=== PATIENT | male | born 1940 | race Hispanic/Latino ===

== ENCOUNTER 2017-09-09 16:03 | Observation (INO) | payer MEDICARE ==
[2017-09-09 16:53] LABS: #Eosinphils 0.1 thou/uL (0.0-0.7); #Lymphocytes 0.6 thou/uL (1.20-3.40); #Monocytes 0.7 thou/uL (0.11-0.59); #Neutrophils 10.8 thou/uL (1.40-6.50); %Basophils 0.1 % (0.0-1.0); %Eosinophils 0.7 % (0.0-10.0); %Lymphocytes 4.9 % (21.0-51.0); %Monocytes 5.4 % (0.0-10.0); Hemoglobin 14.6 g/dL (14.0-18.0); Mean Corpuscular HGB CONC 34.7 g/dL (32.0-36.0); Mean Corpuscular Hemoglobin 29.3 pg (27.0-31.0); Mean Corpuscular Volume 84.4 fL (78.0-98.0); Mean Platelet Volume 8.7 fL (7.4-10.4); Platelet Count 184 thou/uL (130-400); RBC Distribution Width 12.3 % (11.5-14.5); Red Blood Cell (RBC) Count 4.99 mill/uL (4.70-6.10); White Blood Cell (WBC) Count 12.1 thou/uL (4.8-10.8)
[2017-09-09 17:04] LABS: Bilirubin Negative (Negative); Blood, Urine Negative (Negative); Clarity CLEAR (Clear); Glucose, Urine (Dipstick) Negative (Negative); Leukocyte Negative (Negative); Nitrite Negative (Negative); Protein, Urine (Dipstick) 30 mg/dL (Neg-Trace); Specific Gravity, Urine 1.023 (1.002-1.036); Urobilinogen 0.2 mg/dL (0.2-1.0); pH, Urine 5.5 (5.0-9.0)
[2017-09-09 17:11] LABS: Bacteria/HPF None Seen HPF (None Seen); Pathc Cast-AUWi Flag 1.01 (0-2.49); Squamous Epithelial 0-3 HPF (0-3); WBC/HPF 0-3 HPF (0-3)
[2017-09-09 17:16] LABS: Hyaline Casts/LPF 0-3 HYALINE CAST LPF (0-3 Hyaline)
[2017-09-09 17:18] LABS: CKMB 1.2 ng/mL (0-6.6); Troponin I Less than 0.010 ng/mL (< 0.028)
--- NOTE | 2017-09-09 17:39 | RAD ---
PORTABLE CHEST ONE VIEW: 09/09/17 at 4:09 p.m. HISTORY: Weakness. FINDINGS: Comparison is made with exam of 07/24/15. There are changes of median sternotomy. There has been interval placement of a left sided AICD. The h eart size is normal. The lungs are expanded without focal areas of consolidation, pneumothoraces or p leural effusions. IMPRESSION: No acute process. POS: [facility]
[2017-09-09 17:57] LABS: ALT (SGPT) 15 U/L (8-55); AST (SGOT) 14 U/L (5-34); Albumin 4.6 g/dL (3.4-4.8); Alkaline Phosphatase 92 U/L (40-150); Anion Gap 16 mmol/L (10-20); BUN (Urea Nitrogen) 19 mg/dL (8.4-25.7); Bilirubin, Total 0.9 mg/dL (0.2-1.2); Calc. Creatinine Clearance 0 mL/min (70-130); Calcium 9.7 mg/dL (7.8-10.44); Carbon Dioxide 20 mmol/L (23-31); Chloride 106 mmol/L (98-107); Estimated GFR-MDRD 76; Globulin 3.4 g/dL (2.4-3.5); Glucose 160 mg/dL (83-110); Potassium 4.6 mmol/L (3.5-5.1); Sodium 137 mmol/L (136-145)
[2017-09-09] MEDS ORDERED: Ondansetron HCl/PF 4 MG/2 ML Vial ONE (18:13)
[2017-09-09] MEDS ORDERED: Ondansetron ODT 4 MG TAB ONE (18:19)
[2017-09-09] MEDS ORDERED: Acetaminophen 325 MG TAB PO PRN (20:52)
[2017-09-09] MEDS ORDERED: Ondansetron ODT 4 MG TAB SL PRN (20:52)
[2017-09-09] MEDS ORDERED: Ondansetron HCl/PF 4 MG/2 ML Vial IVP PRN (20:52)
[2017-09-09] MEDS ORDERED: Sodium Chloride 0.9% 1,000 ML IV SCH (20:52)
[2017-09-09 21:46] VITALS: BMI 25.1
[2017-09-09] MEDS ORDERED: Carvedilol 25 MG TAB PO SCH (22:00)
--- NOTE | 2017-09-10 03:21 | HP ---
CODE STATUS: FULL CODE. PRIMARY CARE PHYSICIAN: Dr. Adelso Moran. TIME OF EVALUATION: 8:00 p.m. CHIEF COMPLAINT: Generalized weakness, nausea, and vomiting. HISTORY OF PRESENT ILLNESS: A 77-year-old male patient with past medical history of hypertension, CA BG, CAD, atrial fibrillation came to the ER after having severe generalized weakness, associated with nausea. There was profuse, bilious vomiting, with no clear triggers, no alleviating factors. Patie nt reported that he also have some diarrhea today, he also reported that he has had some change in th e diet yesterday, no one else at home were sick. REVIEW OF SYSTEMS: Constitutional: No fever, no chills. Patient reported severe generalized weakne ss. Respiratory: No cough, no sputum production or shortness of breath. Cardiovascular: No chest pain, palpitations, shortness of breath. Gastrointestinal: No nausea, vomiting, diarrhea, abdominal pain. 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 Genitourinary: No burning on urinatio n. Extremities: No leg swelling. All other systems were reviewed and negative except for the findi ngs mentioned above. PAST MEDICAL HISTORY: Positive for coronary artery disease, gallstones. PAST SURGICAL HISTORY: CABG x2 vessels. PSYCHIATRIC HISTORY: No previous psychiatric history. SOCIAL HISTORY: No alcohol, no drugs. No smoking history. FAMILY HISTORY: Mother with hypertension and CVA, father with heart problems. DRUG ALLERGIES: No known drug allergies. REPORTED MEDICATIONS: Lisinopril, carvedilol, spironolactone. PHYSICAL EXAMINATION: VITAL SIGNS: On presentation blood pressure 135/67 with heart rate 79, respiratory rate was 16, temp erature 97.6, oxygen saturation 98 on room air. GENERAL APPEARANCE: The patient is alert and oriented in no acute distress. HEENT: Eye, normal conjunctivae. Dry oral mucosa. Anicteric. NECK: No JVD. RESPIRATORY: Bilateral air entry. No rales, no wheezing. Symmetric expansion. CARDIOVASCULAR: Normal rate, regular rhythm. No murmurs, no gallop. No edema. ABDOMEN: Soft, normal bowel sounds. MUSCULOSKELETAL: Baseline range of motion and strength. No tenderness. SKIN: Warm and intact. No pallor, no rash, no redness. NEUROLOGIC: Baseline sensory. No evidence of any focal weakness. Baseline speech. Cranial nerves seem to be intact. PSYCHIATRIC: Patient is in a good mood. No anxiety, oriented, optimal judgment. IMAGING: EKG was reviewed by myself. Patient has normal sinus rhythm, BBB. Chest x-ray was reviewe d. The patient had no acute cardiopulmonary process. LABORATORY DATA: Reviewed. The patient had white count 12.1, hemoglobin 14, MCV 84, platelet count 184, neutrophils 89. Chemistry: Sodium 137, potassium 4.6, chloride 106, carbon dioxide was 20, ani on gap 16, BUN 19, creatinine 0.9, GFR 76, glucose 160. LFTs were negative. Troponin was negative. UA was done and was negative. ASSESSMENT AND PLAN: The patient will be placed in the hospital with following medical problems: 1. Intractable nausea and vomiting, unclear etiology, to be secondary to food poisoning, symptoms betancur ve improved after hydration and symptomatic treatment. Most likely patient will be able to go home e luis m in the morning. 2. Leukocytosis with white count 12, no clear etiology, likely secondary to acute physical distress. We will monitor, have any evidence of infection. We will place the patient on antibiotics. 3. History of coronary artery disease, status post coronary artery bypass graft, this is chronic, se ems to be stable. Home medications will be reconciled. 4. Hyperglycemia. Blood sugar 160, no history of diabetes reported. We will monitor, no need for a ny acute intervention. Might be secondary to acute physical distress. 5. Deep venous thrombosis prophylaxis.
[2017-09-10 05:25] LABS: #Lymphocytes 0.9 thou/uL (1.20-3.40); #Monocytes 0.6 thou/uL (0.11-0.59); #Neutrophils 7.6 thou/uL (1.40-6.50); %Basophils 0.1 % (0.0-1.0); %Eosinophils 0.1 % (0.0-10.0); %Lymphocytes 9.9 % (21.0-51.0); %Monocytes 6.4 % (0.0-10.0); %Neutrophils 83.5 % (42.0-75.0); Hemoglobin 12.1 g/dL (14.0-18.0); Mean Corpuscular HGB CONC 33.6 g/dL (32.0-36.0); Mean Corpuscular Hemoglobin 28.2 pg (27.0-31.0); Mean Corpuscular Volume 83.7 fL (78.0-98.0); Mean Platelet Volume 7.8 fL (7.4-10.4); Platelet Count 187 thou/uL (130-400); RBC Distribution Width 11.9 % (11.5-14.5); Red Blood Cell (RBC) Count 4.29 mill/uL (4.70-6.10); White Blood Cell (WBC) Count 9.1 thou/uL (4.8-10.8)
[2017-09-10 05:47] LABS: Anion Gap 15 mmol/L (10-20); BUN (Urea Nitrogen) 17 mg/dL (8.4-25.7); Calc. Creatinine Clearance 73 mL/min (70-130); Calcium 8.4 mg/dL (7.8-10.44); Carbon Dioxide 19 mmol/L (23-31); Chloride 107 mmol/L (98-107); Estimated GFR-MDRD 84; Glucose 148 mg/dL (83-110); Potassium 3.8 mmol/L (3.5-5.1); Sodium 137 mmol/L (136-145)
[2017-09-10] MEDS ORDERED: Aspirin 81 mg Enteric Coated Tablet PO SCH (09:00)
[2017-09-10] MEDS ORDERED: Prevnar 13-Val Conj/PF 0.5 ML SYRINGE IM ONE (09:00)
[2017-09-10] MEDS ORDERED: Losartan 25 MG TAB PO SCH (09:00)
[2017-09-10] MEDS ORDERED: Spironolactone 25 MG TAB PO SCH (09:00)
[2017-09-10] MEDS ORDERED: Carvedilol 25 MG TAB PO SCH (09:00)
[2017-09-10] MEDS ORDERED: Enoxaparin Sodium 40 MG/0.4 ML SYRINGE SC SCH (09:00)
[2017-09-10 12:15] VITALS: TEMP 98.5
[2017-09-10 15:57] VITALS: BP 106/52
--- NOTE | 2017-09-11 01:06 | DIS ---
DATE OF ADMISSION: 09/09/2017 DATE OF DISCHARGE: 09/10/2017 DISCHARGE DIAGNOSES: 1. Acute gastroenteritis, likely viral, resolving. 2. Nausea and vomiting secondary to acute gastroenteritis, resolved. 3. Leukocytosis, resolved. 4. Dehydration secondary to acute gastroenteritis, resolved. CONSULTATIONS: None. PERTINENT LAB AND X-RAY FINDINGS: Complete metabolic profile within normal limits. Total CK 45. CB C showed a white blood cell count ranging between 9.1 to 12.1. Urinalysis positive for protein. Blo od cultures x2 from 09/09/2017 showed no growth at 24 hours. Portable chest x-ray dated 09/09/2017 s howed no acute cardiopulmonary process. HOSPITAL COURSE: The patient was observed on the telemetry unit after initially presenting with naus ea, vomiting, and diarrhea. The patient was placed on IV fluids and given general supportive measure s throughout the hospital course. The patient was also treated with antiemetics and monitored for cl inical response. The patient clinically improved in 24 hours with resolution of nausea and vomiting. Screening metabolic survey was essentially unremarkable, and blood cultures were negative x2. Like ly presentation consistent with viral gastroenteritis with recommendations for general supportive man agement. I have examined the patient at the time of discharge and discussed followup instructions. The patient verbalizes understanding and agreement, ready for discharge on 09/10/2017. DISCHARGE MEDICATIONS: 1. Enteric-coated aspirin 81 mg 1 tab p.o. daily. 2. Coreg 25 mg p.o. b.i.d. 3. Losartan 25 mg p.o. daily. 4. Spironolactone 12.5 mg p.o. daily, resume on 09/12/2017. FOLLOWUP: The patient will follow up with his primary care provider, Dr. Adelso Moran within 7 days of discharge. CONDITION ON DISCHARGE: Stable. ACTIVITY: Ad carol. DIET: Heart healthy. CODE STATUS: FULL. DISPOSITION: Home, 09/10/2017.
== END 2017-09-10 16:24 | disposition home or self-care (01) ==
LOC: ERS 16:03 → 2SW 20:48
PROVIDERS: ADMIT Family Medicine; ATTEND Family Medicine
DX: K52.89 Other specified noninfective gastroenteritis and colitis (principal); D72.829 Elevated white blood cell count, unspecified; E86.0 Dehydration; R53.1 Weakness; R73.9 Hyperglycemia, unspecified; I10 Essential (primary) hypertension; I25.10 Atherosclerotic heart disease of native coronary artery without angina pectoris; I48.91 Unspecified atrial fibrillation; Z79.899 Other long term (current) drug therapy; Z95.1 Presence of aortocoronary bypass graft
CPT/HCPCS: 71045; 80048; 80053; 82550; 82553; 83605; 84484; 85025 ×2; 87040; 93005; 96360; 96361; 96372; 99285; G0378 ×2; 36415; 81003; 81015; 90471; 90670; A4216; G0009; J1650; J2405; Q0162

== ENCOUNTER 2018-09-29 07:37 | Outpatient (CLI) | payer MEDICARE ==
--- NOTE | 2018-09-29 08:37 | CT ---
CTA NECK WITH IV CONTRAST AND 3D REFORMATTED IMAGING AND 3D VOLUME RENDERIN09/29/2018 12:00 AM HISTORY: Bilateral carotid artery stenosis. COMPARISON: None FINDINGS: There is atherosclerotic disease of the imaged aortic arch. Vascular disease of each subclavian nadege ry is present with mild stenosis of the proximal left subclavian artery. Right: CCA: Mild luminal stenosis due to calcified and noncalcified plaque. ICA: Severe stenosis involving origin of cervical right ICA and spanning a craniocaudal extent of juan roximately 1.6 cm within the proximal aspect of the cervical right ICA, with a stenosis up to 67% by NASCET criteria. Left: CCA: Mild scattered plaque without significant stenosis. ICA: Severe focal stenosis is seen at the origin, of the cervical left ICA of approximately 70%-75% b y NASCET criteria. Additional moderate to severe stenosis of the proximal aspect of the cervical left ICA, approximately 2.5 cm cephalad to the bifurcation, is present, short segment, with an approx imate 67% stenosis by NASCET criteria. Vertebrobasilar System: There is vascular calcification of each distal vertebral artery. Left Vertebral: Mild to moderate stenosis of the distal left vertebral artery, V4 segment. Right Vertebral: Mild to moderate stenosis of the distal right vertebral artery, V4 segment. Basilar: No significant stenosis. IMPRESSION: 1. Severe stenosis of each proximal cervical internal carotid artery, as described above. 2. Vascular disease of the distal aspect of each vertebral artery as discussed above. Transcribed Date/Time: 09/29/2018 8:51 AM
[2018-09-29] MEDS ORDERED: ISOVUE-370 76%-LOCM 1 ML ONE (13:53)
== END 2018-09-29 07:38 | disposition home or self-care (01) ==
LOC: BICCT 07:37
PROVIDERS: ATTEND Internal Medicine Cardiovascular Disease
DX: I65.23 Occlusion and stenosis of bilateral carotid arteries (principal); I25.10 Atherosclerotic heart disease of native coronary artery without angina pectoris; I99.8 Other disorder of circulatory system
CPT/HCPCS: 70498; 82565; Q9966

== ENCOUNTER 2019-10-14 06:48 | Outpatient (CLI) | payer MEDICARE, OTHER ==
[2019-10-14 16:17] LABS: Hemoglobin 12.6 g/dL (14.0-18.0); Mean Corpuscular HGB CONC 32.6 g/dL (32.0-36.0); Mean Corpuscular Hemoglobin 27.9 pg (27.0-31.0); Mean Corpuscular Volume 85.8 fL (78.0-98.0); Mean Platelet Volume 8.6 fL (7.4-10.4); Platelet Count 208 thou/uL (130-400); RBC Distribution Width 11.7 % (11.5-14.5); Red Blood Cell (RBC) Count 4.52 mill/uL (4.70-6.10); White Blood Cell (WBC) Count 5.7 thou/uL (4.8-10.8)
[2019-10-14 17:22] LABS: Anion Gap 16 mmol/L (10-20); BUN (Urea Nitrogen) 22 mg/dL (8.4-25.7); Calc. Creatinine Clearance 0 mL/min (70-130); Calcium 9.2 mg/dL (7.8-10.44); Carbon Dioxide 23 mmol/L (23-31); Chloride 104 mmol/L (98-107); Estimated GFR-MDRD 71; Glucose 219 mg/dL (83-110); Potassium 5.1 mmol/L (3.5-5.1); Sodium 138 mmol/L (136-145)
[2019-10-15 12:20] LABS: SARS-CoV-2 MS2 Positive; SARS-CoV-2 N Gene Negative; SARS-CoV-2 S Gene Negative; SARS-CoV-2 by NAA Not Detected (NotDetected); SARS-CoV-2 orf1ab Negative
== END 2019-10-14 06:49 | disposition home or self-care (01) ==
LOC: LABBT 06:48
PROVIDERS: ATTEND Obstetrics & Gynecology
DX: Z01.812 Encounter for preprocedural laboratory examination (principal); Z20.828 Contact with and (suspected) exposure to other viral communicable diseases; I65.29 Occlusion and stenosis of unspecified carotid artery
CPT/HCPCS: 80048; 85027; U0003; 87635

== ENCOUNTER 2019-10-14 13:45 | Inpatient (IN) | payer MEDICARE, OTHER ==
[2019-10-19] MEDS ORDERED: Fentanyl 100 MCG/2 ML VIAL ONE (06:33)
[2019-10-19] MEDS ORDERED: Midazolam HCl 2 mg/2 ml Vial ONE (06:33)
[2019-10-19] MEDS ORDERED: Heparin 5,000 UNITS/ML VIAL ONE (06:38)
[2019-10-19] MEDS ORDERED: Bupivacaine PF 0.5% 30 ML VIAL ONE (07:08)
[2019-10-19] MEDS ORDERED: EPINEPHrine 1 MG/ML AMP ONE (07:08)
[2019-10-19] MEDS ORDERED: Protamine Sulfate 50 MG/5 ML VIAL ONE (07:15)
[2019-10-19] MEDS ORDERED: Ondansetron HCl/PF 4 MG/2 ML Vial IVP PRN (07:24)
[2019-10-19] MEDS ORDERED: SUGAMMADEX SODIUM 500 MG/5 ML VIAL ONE (08:55)
[2019-10-19] MEDS ORDERED: SUGAMMADEX SODIUM 200 MG/2 ML VIAL ONE (08:55)
[2019-10-19] MEDS ORDERED: EPHEDRINE 25 MG/5 ML SYRINGE ONE (09:37)
[2019-10-19] MEDS ORDERED: Rocuronium Bromide 10 MG/ML (10ML VIAL) ONE (09:37)
[2019-10-19] MEDS ORDERED: Ketorolac Tromethamine 30 MG/ML VIAL ONE (09:37)
[2019-10-19] MEDS ORDERED: Ondansetron PF 4 MG/2 ML Vial ONE (09:37)
[2019-10-19] MEDS ORDERED: PHENYLEPHRINE-NS 100 MCG/ML 10 ML SYRINGE ONE (09:37)
[2019-10-19] MEDS ORDERED: Lidocaine 1% PF 5 ML VIAL ONE (09:37)
[2019-10-19] MEDS ORDERED: PROPOFOL 200 MG/20 ML VIAL ONE (09:37)
[2019-10-19] MEDS ORDERED: hydrALAZINE 20 MG/ML VIAL ONE (09:54)
[2019-10-19] MEDS ORDERED: Fentanyl 100 MCG/2 ML VIAL SLOW IVP PRN (10:38)
[2019-10-19] MEDS ORDERED: hydrALAZINE 20 MG/ML VIAL SLOW IVP PRN (10:38)
[2019-10-19] MEDS ORDERED: Phenylephrine 10 MG/NS 250 ML 250 ML IVPB PRN (10:38)
[2019-10-19] MEDS ORDERED: Ondansetron PF 4 MG/2 ML Vial IVP PRN (10:38)
[2019-10-19] MEDS ORDERED: Nitroglycerin 50 MG/250 ML BOT 250 ML IVPB PRN (10:38)
[2019-10-19] MEDS ORDERED: Acetaminophen 325 MG TAB PO PRN (10:38)
[2019-10-19] MEDS ORDERED: Promethazine HCl 25 MG/ML VIAL IM PRN (10:38)
[2019-10-19 10:51] VITALS: BMI 24.9
[2019-10-19] MEDS: Sodium Chloride 0.9% 1,000 ML IV SCH ×2 (11:40→22:20)
--- NOTE | 2019-10-19 12:47 | OP ---
DATE OF PROCEDURE: 10/19/2019 PREOPERATIVE DIAGNOSIS: Asymptomatic right carotid stenosis. POSTOPERATIVE DIAGNOSIS: Asymptomatic right carotid stenosis. PROCEDURE PERFORMED: Right carotid endarterectomy with patch angioplasty. ANESTHESIA: General endotracheal. ESTIMATED BLOOD LOSS: Less than 100. DRAINS: None. SPECIMENS: Internal jugular chain lymph node for protocol. DESCRIPTION OF PROCEDURE: After consent was obtained, the patient was brought to the operating room and placed in supine position on the operating table. Appropriate central line and monitors were placed and general endotracheal anesthesia was induced. Head was rotated to the left and neck extended. Joints were appropriately supported and padded. Neck was prepped and draped in usual sterile fashion. Skin incision was made along the anterior border of the sternocleidomastoid. Platysma was incised. Sternocleidomastoid was mobilized posteriorly. The incision was extended more distally to allow for better exposure of the distal carotid. Carotid sheath was entered. Two facial vein branches were divided between clips and ties. The vagus and hypoglossal nerves were noted and protected throughout the procedure. The hypoglossal nerve was mobilized off the anterior surface of the carotid artery. The two sternocleidomastoid artery and vein branches were divided between clips. The patient was systemically heparinized. After 3 minutes, the internal, common, and external carotid arteries were carefully clamped. An incision was made on the common carotid artery extended through the bulb distal to the plaque. A 10-[place] shunt was placed and antegrade flow re-established. During the brief period of clamping, the cerebral oximeter did drop by approximately 20%. I returned back to his baseline with institution of antegrade flow. Endarterectomy was begun on the common carotid artery, extended through the bulb. An eversion endarterectomy of the external carotid artery was performed. Good endpoint was obtained. Medial fibers were debrided. The artery was flushed with heparinized saline. The plaque was nearly occlusive in nature and had some areas of soft cheesy type plaque. Bovine pericardial patch was then sewn in place with running 6-0 Prolene suture. Prior to completion of patch suture line, shunt was removed. Arteries were back bled and flushed with heparinized saline. The internal carotid artery was allowed to backbleed while we were closing the remainder of the patch suture line. Patch suture line was tied. Internal carotid artery was clamped. External and common carotid artery flow was re-established. After 10 seconds, internal carotid artery flow was re-established. Protamine was administered. Hemostasis was ensured. Wounds were irrigated, closed in layers and Dermabond applied to the skin. The patient was awakened and neurologically intact at completion of the procedure. The patient tolerated the procedure well, was transferred to the recovery room in stable condition. Job ID: [id number]
[2019-10-19] MEDS: CEFAZOLIN 2 GM in Premix Bag 1 BAG IVPB SCH ×2 (15:13→22:20)
--- NOTE | 2019-10-19 20:56 | EKG ---
Test Reason : PREOP Blood Pressure : / mmHG Vent. Rate : 072 BPM Atrial Rate : 072 BPM P-R Int : 156 ms QRS Dur : 110 ms QT Int : 412 ms P-R-T Axes : 053 003 161 degrees QTc Int : 451 ms Normal sinus rhythm Left ventricular hypertrophy with repolarization abnormality Inferior infarct , age undetermined Abnormal ECG No previous ECGs available Confirmed by Alvino CHIRINOS ([id number]) on 10/19/2019 8:55:40 PM Referred By: ELADIA Confirmed By:Alvino CHIRINOS
[2019-10-20 04:20] VITALS: TEMP 99.4
[2019-10-20] MEDS: CEFAZOLIN 2 GM in Premix Bag 1 BAG IVPB SCH (05:22)
[2019-10-20] MEDS ORDERED: Spironolactone 25 MG TAB PO SCH (09:00)
[2019-10-20] MEDS ORDERED: Losartan 25 MG TAB PO SCH (09:00)
[2019-10-20] MEDS ORDERED: Aspirin 81 mg Enteric Coated Tablet PO SCH (09:00)
[2019-10-20] MEDS ORDERED: Carvedilol 25 MG TAB PO SCH (09:00)
--- NOTE | 2019-10-20 11:13 | DIS ---
DATE OF ADMISSION: 10/19/2019 DATE OF DISCHARGE: 10/20/2019 DIAGNOSIS: Asymptomatic bilateral carotid stenosis. PROCEDURE: Right carotid endarterectomy with patch angioplasty. DESCRIPTION OF HOSPITAL STAY: Mr. Bucio was admitted for elective endarterectomy. He has done well. He is neurologically intact, being discharged to home in good condition to follow up with me in 2 weeks. DISCHARGE MEDICATIONS: Unchanged. Job ID: [id number]
[2019-10-20] MEDS ORDERED: Atorvastatin Calcium 10 MG TAB PO SCH (21:00)
[2019-10-20] MEDS ORDERED: Clopidogrel Bisulfate 75 MG TAB PO SCH (21:00)
== END 2019-10-20 06:35 | disposition home or self-care (01) | DRG 38 ==
LOC: SURG A 10-19 06:11 → CCU 10-19 10:18
PROVIDERS: ADMIT Thoracic Surgery (Cardiothoracic Vascular Surgery); ATTEND Thoracic Surgery (Cardiothoracic Vascular Surgery)
PROC: 03CH0ZZ Extirpation of Matter from Right Common Carotid Artery, Open Approach (ICD-10-PCS; principal; 2019-10-19)
PROC: 03UH0JZ Supplement Right Common Carotid Artery with Synthetic Substitute, Open Approach (ICD-10-PCS; 2019-10-19)
DX: I65.21 Occlusion and stenosis of right carotid artery (principal); I50.1 Left ventricular failure, unspecified; E78.2 Mixed hyperlipidemia; I25.10 Atherosclerotic heart disease of native coronary artery without angina pectoris; I10 Essential (primary) hypertension; K81.9 Cholecystitis, unspecified; I25.2 Old myocardial infarction; Z79.82 Long term (current) use of aspirin; Z79.899 Other long term (current) drug therapy
CPT/HCPCS: 88184; 88307; 93005; 93010; 94640; J0171; J0360; J0690; J1642; J1644; J1885; J2250; J2405; J2704; J2720; J3010; J7620; S0020

== ENCOUNTER 2019-12-09 08:00 | Inpatient (IN) | payer MEDICARE ==
[2019-12-13 10:58] VITALS: BMI 23.5
[2019-12-14] MEDS ORDERED: Bupivacaine PF 0.5% 30 ML VIAL ONE (06:32)
[2019-12-14] MEDS ORDERED: Protamine Sulfate 50 MG/5 ML VIAL ONE (06:32)
[2019-12-14] MEDS ORDERED: Heparin 5,000 UNITS/ML VIAL ONE (06:32)
[2019-12-14] MEDS ORDERED: EPINEPHrine 1 MG/ML AMP ONE (06:32)
[2019-12-14] MEDS ORDERED: Midazolam HCl 2 mg/2 ml Vial ONE (06:50)
[2019-12-14] MEDS ORDERED: Fentanyl 100 MCG/2 ML VIAL ONE ×3 (06:50→09:45)
[2019-12-14] MEDS ORDERED: Nitroglycerin 50 MG/250 ML BOT 250 ML ONE (07:13)
[2019-12-14] MEDS ORDERED: Phenylephrine 10 MG/ML VIAL ONE (07:13)
[2019-12-14] MEDS ORDERED: hydrALAZINE 20 MG/ML VIAL ONE ×2 (07:15→14:40)
[2019-12-14] MEDS ORDERED: PROPOFOL 200 MG/20 ML VIAL ONE (08:35)
[2019-12-14] MEDS ORDERED: Lidocaine 1% PF 5 ML VIAL ONE (08:35)
[2019-12-14] MEDS ORDERED: Rocuronium Bromide 10 MG/ML (10ML VIAL) ONE (08:35)
[2019-12-14] MEDS ORDERED: Glycopyrrolate 0.2 MG/ML 5 ML SYRINGE ONE (08:35)
[2019-12-14] MEDS ORDERED: PACU-Morphine 4MG/ML VIAL SLOW IVP PRN (09:07)
[2019-12-14] MEDS ORDERED: Promethazine HCl 25 MG/ML VIAL SLOW IVP PRN (09:07)
[2019-12-14] MEDS ORDERED: Promethazine HCl 25 MG/ML VIAL IM PRN ×2 (09:07→14:19)
[2019-12-14] MEDS ORDERED: Ondansetron HCl/PF 4 MG/2 ML Vial IVP PRN (09:07)
--- NOTE | 2019-12-14 09:37 | OP ---
DATE OF PROCEDURE: 12/14/2019 PREOPERATIVE DIAGNOSIS: Asymptomatic left carotid stenosis. POSTOPERATIVE DIAGNOSIS: Asymptomatic left carotid stenosis. PROCEDURE PERFORMED: Left carotid endarterectomy with patch angioplasty. ANESTHESIA: General endotracheal. ESTIMATED BLOOD LOSS: Less than 50. DRAINS: None. SPECIMENS: Left jugular chain lymph nodes for protocol. DESCRIPTION OF PROCEDURE: After consent was obtained, the patient was brought to the operating room and placed in supine position on the operating room table. Appropriate central line and monitors were placed, and general endotracheal anesthesia was induced. Neck was extended and rotated to the right. The left neck was prepped and draped in usual sterile fashion. Skin incision was made over the anterior border of the sternocleidomastoid. Platysma was incised with electrocautery. Sternocleidomastoid was mobilized. Carotid sheath was entered. There was a large group of lymph nodes overlying the carotid and jugular vein. These were removed in toto. The facial vein was divided between clips and ties. Carotid sheath was entered. Common internal and external carotid arteries were carefully exposed. Hypoglossal nerve was protected. Vagus nerve was noted and protected. The patient was systemically heparinized. After 3 minutes, internal, common, and external carotid arteries were serially clamped. An incision was made on the common carotid artery, extended through the bulb distal to the plaque. This was a high extending plaque all the way up to the digastric. A 10-[place] shunt was placed, and antegrade flow reestablished. Endarterectomy was performed with mosquito hemostats. A good tapered distal endpoint was obtained. Eversion endarterectomy was performed of the external carotid artery. Medial fibers were debrided. The carotid bed was then copiously irrigated. A bovine pericardial patch was sewn in place with running 6-0 Prolene suture. Prior to completion of patch suture line, shunt was clamped and removed. Arteries were back bled and flushed with heparinized saline. Patch suture line was completed and antegrade flow re-established up the external carotid artery for 10 seconds followed by the internal carotid artery. Protamine was administered. There was palpable pulse distal to our endarterectomy site. Two stitches were placed for hemostasis. Wounds were irrigated, closed in layers, and Dermabond applied to the skin. The patient was awakened and neurologically intact at completion. Needle, sponge, and instrument counts were all reported as correct at the end of the procedure. Job ID: [id number]
[2019-12-14] MEDS ORDERED: hydrALAZINE 20 MG/ML VIAL SLOW IVP PRN (14:19)
[2019-12-14] MEDS ORDERED: Ondansetron PF 4 MG/2 ML Vial IVP PRN (14:19)
[2019-12-14] MEDS ORDERED: Sodium Chloride 0.9% 1,000 ML IV SCH (14:19)
[2019-12-14] MEDS ORDERED: Phenylephrine 10 MG/NS 250 ML 250 ML IVPB PRN (14:19)
[2019-12-14] MEDS ORDERED: traMADol HCl 50 MG TAB PO PRN ×2 (14:19)
[2019-12-14] MEDS ORDERED: Nitroglycerin 50 MG/250 ML BOT 250 ML IVPB PRN (14:19)
[2019-12-14] MEDS ORDERED: Fentanyl 100 MCG/2 ML VIAL SLOW IVP PRN ×2 (14:19)
[2019-12-14] MEDS ORDERED: Acetaminophen 325 MG TAB PO PRN (14:19)
[2019-12-14] MEDS ORDERED: Spironolactone 25 MG TAB PO SCH ×2 (14:45→18:00)
[2019-12-14] MEDS: CEFAZOLIN 2 GM in Premix Bag 1 BAG IVPB SCH ×2 (17:00→23:39)
[2019-12-14] MEDS ORDERED: Carvedilol 6.25 MG TAB PO SCH (17:00)
[2019-12-14] MEDS ORDERED: Carvedilol 25 MG TAB PO SCH (18:00)
[2019-12-14] MEDS ORDERED: Atorvastatin Calcium 10 MG TAB PO SCH (21:00)
[2019-12-15 04:47] VITALS: TEMP 97
[2019-12-15] MEDS: CEFAZOLIN 2 GM in Premix Bag 1 BAG IVPB SCH (06:22)
--- NOTE | 2019-12-15 07:06 | DIS ---
DATE OF ADMISSION: 12/14/2019 DATE OF DISCHARGE: 12/15/2019 DIAGNOSIS: Asymptomatic left carotid stenosis. PROCEDURE: Left carotid endarterectomy. DESCRIPTION OF HOSPITAL STAY: Mr. Bucio has undergone a left carotid endarterectomy. He has had no issues postoperatively. He is being discharged to home to follow up with me in 2 weeks. DISCHARGE MEDICATIONS: Unchanged. Job ID: [id number]
[2019-12-15] MEDS ORDERED: Carvedilol 25 MG TAB PO SCH (08:00)
[2019-12-15] MEDS ORDERED: Losartan 25 MG TAB PO SCH (09:00)
[2019-12-15] MEDS ORDERED: Aspirin 81 mg Enteric Coated Tablet PO SCH (09:00)
[2019-12-15] MEDS ORDERED: Spironolactone 25 MG TAB PO SCH (09:00)
[2019-12-15] MEDS ORDERED: Clopidogrel Bisulfate 75 MG TAB PO SCH (21:00)
== END 2019-12-15 07:50 | disposition home or self-care (01) | DRG 39 ==
LOC: SURG A 12-14 06:00 → CCU 12-14 09:17
PROVIDERS: ADMIT Thoracic Surgery (Cardiothoracic Vascular Surgery); ATTEND Thoracic Surgery (Cardiothoracic Vascular Surgery)
PROC: 03CJ0ZZ Extirpation of Matter from Left Common Carotid Artery, Open Approach (ICD-10-PCS; principal; 2019-12-14)
PROC: 03UJ0KZ Supplement Left Common Carotid Artery with Nonautologous Tissue Substitute, Open Approach (ICD-10-PCS; 2019-12-14)
DX: I65.22 Occlusion and stenosis of left carotid artery (principal); Z20.828 Contact with and (suspected) exposure to other viral communicable diseases
CPT/HCPCS: 86850; 86900; 86901; 88184; 88305; 94640; J0171; J0360; J0690; J1642; J1644; J2250; J2370; J2704; J2720; J3010; J7620; S0020